=== PATIENT | male | born 1970 | race Caucasian/White ===

== ENCOUNTER 2019-06-13 20:14 | Emergency (ER) | payer BC ==
--- NOTE | 2019-06-13 20:49 | EDM.PDOC ---
ED HPI GENERAL MEDICAL PROBLEM - General Chief Complaint: Lower Extremity Injury/Pain Stated Complaint: ANKLE INJURY Time Seen by Provider: 06/13/19 20:49 Source of Information: Reports: Patient History Limitations: Reports: No Limitations - History of Present Illness INITIAL COMMENTS - FREE TEXT/NARRATIVE: Patient is a 48-year-old male who presents to the ED complaining of pain to the lateral and medial aspect of the right ankle with swelling present. Patient states at work today he was setting up a cat walk that weighs approximately 4000 pounds when it fell across his left upper leg angling down towards his right ankle causing his foot/ankle to twist awkwardly outward. Pain brought the patient to his knees. The pain has grown increasingly worse throughout the course of the day. He was able to continue to work on the affected ankle with increasing pain with ambulation. He denies any pain to his right knee, proximal tib-fib, hips, left leg, or any additional complaints. Right Ankle Pain Score (Numeric/FACES): 9 - Related Data Allergies Allergy/AdvReac Type Severity Reaction Status Date / Time No Known Allergies Allergy Verified 06/13/19 20:45 Past Medical History - Past Surgical History Musculoskeletal Surgical History: Reports: Other (See Below) Other Musculoskeletal Surgeries/Procedures:: neck surgery Social & Family History - Family History Family Medical History: Noncontributory Review of Systems - Review of Systems Review Of Systems: ROS reveals no pertinent complaints other than HPI. ED EXAM, GENERAL - Physical Exam Exam: See Below Exam Limited By: No Limitations General Appearance: Alert, WD/WN, No Apparent Distress Eye Exam: Bilateral Eye: Normal Inspection Ears: Hearing Grossly Normal Nose: Normal Inspection Throat/Mouth: Normal Voice, No Airway Compromise Head: Atraumatic, Normocephalic Neck: Normal Inspection, Supple Respiratory/Chest: No Respiratory Distress, Lungs Clear, Normal Breath Sounds, No Accessory Muscle Use Cardiovascular: Normal Peripheral Pulses, Regular Rate, Rhythm, No Murmur Peripheral Pulses: 2+: Radial (R) Extremities: Other (On examination of the right ankle there is swelling to the medial and lateral malleolus. No ecchymosis present. The palpation of the right leg there is no tenderness to the upper leg, knee, proximal tib-fib, phalanges, and/or foot. He has pain along the lateral anterior and medial aspect of the ankle. Increasing pain with flexion and extension and abduction and abduction. Testing is limited secondary to pain. No sensory changes noted. On examination the left lower extremity there is a red abrasion to the left upper thigh otherwise there is no pain with palpation of the left lower extremity at all. He denies any additional complaints.) Neurological: Alert, Oriented, CN II-XII Intact, Normal Cognition, No Motor/ Sensory Deficits. No: Normal Gait Psychiatric: Normal Affect, Normal Mood Skin Exam: Warm, Dry, Intact, Normal Color Course - Vital Signs Last Recorded V/S: Last Vital Signs Temp 98.2 F 06/13/19 20:43 Pulse 94 06/13/19 20:43 Resp 18 06/13/19 20:43 BP 122/92 H 06/13/19 20:43 Pulse Ox 94 L 06/13/19 20:43 - Orders/Labs/Meds Orders: Active Orders 24 hr Category Date Time Status Ankle Min 3V Rt [CR] Stat Exams 06/13/19 20:50 Taken DME for Discharge [COMM] Stat Oth 06/13/19 22:09 Ordered Meds: Medications Discontinued Medications Generic Name Dose Route Start Last Admin Trade Name Gia PRN Reason Stop Dose Admin Hydrocodone Bitart/Acetaminophen 1 tab 06/13/19 21:15 06/13/19 21:22 [place] 325-5 Mg PO 06/13/19 21:16 1 tab ONETIME ONE Administration - Re-Assessments/Exams Free Text/Narrative Re-Assessment/Exam: On exam patient has pain to the lateral and medial malleolus. Swelling noted bilaterally. Decreased range of motion secondary to pain. He has no pain noted to the right knee or proximal fibula. No discomfort along the proximal tibia as well. No pain with palpation of the structures of the foot and toes. No sensory deficits noted. X-ray of the right ankle will be obtained along with [place] [id number] by mouth provided to patient. X-ray of the right ankle reviewed with Dr. Lux with no acute bony abnormalities noted. Final interpretation is pending. Patiently placed in a walking boot and provided crutches upon discharge. Return precautions were discussed with the patient. He will follow up with occupational med provider tomorrow or the next day for reevaluation and further management. Patient had no further questions or concerns and agreed with plan. Departure - Departure Time of Disposition: 22:12 Disposition: Home, Self-Care 01 Condition: Good Clinical Impression: Right ankle sprain Qualifiers: Encounter type: initial encounter Involved ligament of ankle: unspecified ligament Qualified Code(s): S93.401A - Sprain of unspecified ligament of right ankle, initial encounter - Discharge Information Instructions: Crutch Use, Adult, [id number], Ankle Sprain, [id number], Walking Boot, Adult, Pain Medicine Instructions, [id number] Referrals: PCP,None [Primary Care Provider] - Forms: ED Department Discharge, ED Return to Work/School Form Additional Instructions: You are to be nonweightbearing toe-touch only for balance, utilize crutches to ambulate with walking boot on. Advance weight as tolerated over the next 3-5 days. Take the walking boot off when icing or resting. Elevate when able to reduce any swelling and pain. For pain take Tylenol and ibuprofen in alternating fashion. Apply ice to the affected area 3 times a day, 20 minutes in duration, do not apply ice directly on the skin. Follow up with occupational med provider tomorrow or the next day for reevaluation and for modification of job duties. Do not drive this evening since receiving a sedative medication. - My Orders Last 24 Hours: My Active Orders 06/13/19 20:50 Ankle Min 3V Rt [CR] Stat 06/13/19 22:09 DME for Discharge [COMM] Stat - Assessment/Plan Last 24 Hours: My Active Orders 06/13/19 20:50 Ankle Min 3V Rt [CR] Stat 06/13/19 22:09 DME for Discharge [COMM] Stat
[2019-06-13] MEDS ORDERED: Acetaminophen/HYDROcodone 325-5 MG Tab PO ONE (21:15)
--- NOTE | 2019-06-14 10:16 | CR ---
Right ankle: Four views of the right ankle were obtained. Comparison: No previous study. Ankle mortise is symmetric. No fracture, dislocation or other bony abnormality is seen. Impression: 1. No acute bony abnormality is identified on right ankle exam. Diagnostic code #1
== END 2019-06-13 22:28 | disposition home or self-care (01) ==
LOC: JD.ED 20:14
DX: S93.401A Sprain of unspecified ligament of right ankle, initial encounter (principal); X50.0XXA Overexertion from strenuous movement or load, initial encounter
CPT/HCPCS: 73610; 99283; A9270